=== PATIENT | male | born 1970 | race Native Hawaiian/Other Pacific Islander ===

== ENCOUNTER 2017-09-21 04:48 | Emergency (ER) | payer OTHER ==
[2017-09-21 05:00] VITALS: BP 159/95; PULSE 105; RESP 20; TEMP 98.1; O2SAT 96
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
== END 2017-09-21 05:34 | disposition home or self-care (01) ==
LOC: C.ER 04:48
DX: S40.022A Contusion of left upper arm, initial encounter (principal); W51.XXXA Accidental striking against or bumped into by another person, initial encounter; Y99.0 Civilian activity done for income or pay; I10 Essential (primary) hypertension; E78.00 Pure hypercholesterolemia, unspecified

== ENCOUNTER 2019-02-26 07:05 | Outpatient (CLI) | payer BC | END 2019-02-26 07:06 | disposition home or self-care (01) | LOC: C.LAB 07:05 | DX: J02.0 Streptococcal pharyngitis (principal); I10 Essential (primary) hypertension; M10.9 Gout, unspecified ==